=== PATIENT | male | born 1940 | race Caucasian/White ===

== ENCOUNTER 2016-10-11 10:45 | Inpatient (IN) | payer MEDICARE, BC ==
[~2016-10-11] VITALS: Ht 180.3 cm; Wt 74.2 kg
[~2016-10-11 10:45] MED LIST: ACTOS45 MG; ADULT ASPIRIN E81 MG PO; ALEVE220 M2 PO; BENICAR HCT1 TA1; CALCI23 PO; CIPROFLOXACN250 MG PO; CO Q-10100 MG PO; CO Q-10200 M1 PO; CODEINE SULF; COUMADIN5 MG PO; CYANOCOBALAM1000 MCG IM; DILAUDID 2MG2 MG/TA1 PO; DILAUDID2 MG PO; EC ASPIRIN325 M1 PO; FISH OIL1000 M1 PO; FLEXERIL OR; FLOMAX0.4 M1 PO; FLUARIX QUADRIV1 IN1 IM; FLUARIX QUADRIV1 INJ IM; GLYBURIDE2.5 MG PO; KURIC21 EX; LIPITOR40 M1 PO; LISINOP/HCTZ1 TAB PO; LISINOPRIL10 MG PO; MEDDOSEPAK PO; MEGACE20 MG/TAB PO; METFORMIN500 MG PO; METOPROL TAR50 MG PO; NAPROXEN250 MG PO; PREVNAR 13 IM; SEROQUEL25 MG PO; SIMVASTATIN40 MG PO; STOOL SOFTE1 PO; STOOL SOFTEN100 MG PO; STOOL SOFTENER100 MG PO; TEMAZEPAM15 MG PO; TRAMADOL HCL50 MG PO; ULTRAM50 M1 OR; ULTRAM50 M1 PO; ULTRAM50 MG PO; VESICARE5 MG PO; VITAMIN B 6100 MG PO; [UNRECOGNIZED DRUG - OTHER] TOP
[2016-10-16] VITALS (10 sets, daily range): BP systolic 115–148; BP diastolic 51–60
[2016-10-17] VITALS (18 sets, daily range): BP systolic 121–202; BP diastolic 54–87
[2016-10-17 04:39] LABS: HEMATOCRIT 34.6 % (39.0-50.0); HEMOGLOBIN 11.9 g/dl (14.0-18.0); IMMATURE GRANULOCYTES 0.2 % (0.0-1.0); MEAN CELL VOLUME 98.6 fL CALC (80.0-100.0); MEAN CORPUSCULAR HGB 33.9 pG CALC (26.0-32.0); MEAN CORPUSCULAR HGB CONC 34.4 g/L CALC (32.0-36.0); NEUT# 6.97 thou/uL (1.82-7.42); RED BLOOD COUNT 3.51 mill/uL (4.70-6.10); RED CELL DISTRI WIDTH 12.8 % (11.5-15.5)
[2016-10-17 04:54] LABS: ALBUMIN 3.1 g/dL (3.2-5.0); ALKALINE PHOSPHATASE 72 u/l (38-126); ANION GAP 11 (6-22 (CALC)); BILIRUBIN, TOTAL 2.1 mg/dL (0.0-1.4); BUN 12 mg/dL (8-23); BUN/CREATININE RATIO 13 (12-20 (CALC)); CALCIUM 8.7 mg/dL (8.4-10.2); CARBON DIOXIDE 24 mmol/l (22-30); CHLORIDE 107 mmol/l (95-108); CREATININE 0.9 mg/dL (0.7-1.3); GFR > 60 ML/MIN (>=60 (CALC)); GFR FOR AFR.AMER. > 60 ML/MIN (>=60 (CALC)); GLUCOSE 153 mg/dL (82-115); POTASSIUM 3.9 mmol/l (3.5-5.1); SGOT/AST 29 u/l (19-48); SGPT/ALT 31 u/l (11-66); SODIUM 138 mmol/l (137-146); TOTAL PROTEIN 5.3 g/dL (6.3-8.2)
[2016-10-17 16:28] LABS: URINE BILIRUBIN - DIPSTICK NEGATIVE (NEGATIVE); URINE BLOOD DIPSTICK MODERATE (NEGATIVE); URINE CLARITY CLEAR; URINE COLOR YELLOW; URINE GLUCOSE - DIPSTICK 100 mg/dL (NEGATIVE); URINE KETONE NEGATIVE (NEGATIVE); URINE LEUK ESTERASE NEGATIVE (Negative); URINE NITRITE - DIPSTICK NEGATIVE (Negative); URINE PH 6.5 (4.5-8.0); URINE PROTEIN - DIPSTICK NEGATIVE (NEG-TRACE); URINE SPECIFIC GRAVITY 1.015; URINE UROBILINOGEN - DIPSTICK 0.2 E.U./dL (0.2)
[2016-10-17 17:03] LABS: URINE RBC 0-2 RBC/hpf (0-5); URINE WBC 0-2 WBC/hpf (0-5)
[2016-10-18 04:58] VITALS: BP 163/73
[2016-10-18 08:59] VITALS: BP 137/53
[2016-10-18 09:35] LABS: HEMATOCRIT 40.7 % (39.0-50.0); HEMOGLOBIN 13.9 g/dl (14.0-18.0); IMMATURE GRANULOCYTES 0.4 % (0.0-1.0); MEAN CELL VOLUME 99.5 fL CALC (80.0-100.0); MEAN CORPUSCULAR HGB CONC 34.2 g/L CALC (32.0-36.0); NEUT# 6.61 thou/uL (1.82-7.42); RED BLOOD COUNT 4.09 mill/uL (4.70-6.10); RED CELL DISTRI WIDTH 12.6 % (11.5-15.5)
[2016-10-18 09:50] LABS: ANION GAP 16 (6-22 (CALC)); BUN 12 mg/dL (8-23); BUN/CREATININE RATIO 15 (12-20 (CALC)); CALCIUM 9.4 mg/dL (8.4-10.2); CARBON DIOXIDE 23 mmol/l (22-30); CHLORIDE 104 mmol/l (95-108); CREATININE 0.8 mg/dL (0.7-1.3); GFR > 60 ML/MIN (>=60 (CALC)); GFR FOR AFR.AMER. > 60 ML/MIN (>=60 (CALC)); GLUCOSE 196 mg/dL (82-115); SODIUM 138 mmol/l (137-146)
[2016-10-18 11:06] VITALS: BP 145/64
[2016-10-18 11:25] VITALS: BP 137/53
[2016-10-18 12:32] LABS: URINE BILIRUBIN - DIPSTICK NEGATIVE (NEGATIVE); URINE BLOOD DIPSTICK LARGE (NEGATIVE); URINE CLARITY CLEAR; URINE COLOR YELLOW; URINE GLUCOSE - DIPSTICK 100 mg/dL (NEGATIVE); URINE KETONE 15 mg/dL (NEGATIVE); URINE LEUK ESTERASE NEGATIVE (Negative); URINE NITRITE - DIPSTICK NEGATIVE (Negative); URINE PROTEIN - DIPSTICK 30 mg/dL (NEG-TRACE); URINE SPECIFIC GRAVITY 1.025
[2016-10-18 12:40] LABS: URINE MUCUS MODERATE hpf (NONE-FEW); URINE RBC TNTC RBC/hpf (0-5); URINE SQUAMOUS EPITHELIAL CELL FEW EPI/hpf (0-FEW)
== END 2016-10-18 14:13 | disposition home health service (06) | DRG 39 ==
LOC: ICU 10-16 08:54 → MS2 10-16 12:00
PROVIDERS: ADMIT Internal Medicine Geriatric Medicine; ATTEND Internal Medicine Geriatric Medicine
PROC: 03CK0ZZ Extirpation of Matter from Right Internal Carotid Artery, Open Approach (ICD-10-PCS; principal; 2016-10-16)
PROC: 03CM0ZZ Extirpation of Matter from Right External Carotid Artery, Open Approach (ICD-10-PCS; 2016-10-16)
PROC: 03UK0KZ Supplement Right Internal Carotid Artery with Nonautologous Tissue Substitute, Open Approach (ICD-10-PCS; 2016-10-16)
PROC: 03UH0KZ Supplement Right Common Carotid Artery with Nonautologous Tissue Substitute, Open Approach (ICD-10-PCS; 2016-10-16)
PROC: 0T9B70Z Drainage of Bladder with Drainage Device, Via Natural or Artificial Opening (ICD-10-PCS; 2016-10-17)
DX: I65.23 Occlusion and stenosis of bilateral carotid arteries (principal); J44.9 Chronic obstructive pulmonary disease, unspecified; E11.9 Type 2 diabetes mellitus without complications; I25.10 Atherosclerotic heart disease of native coronary artery without angina pectoris; I10 Essential (primary) hypertension; E78.5 Hyperlipidemia, unspecified; M19.90 Unspecified osteoarthritis, unspecified site; N40.1 Benign prostatic hyperplasia with lower urinary tract symptoms; R35.1 Nocturia; R39.12 Poor urinary stream; R39.13 Splitting of urinary stream; R33.8 Other retention of urine; Z86.718 Personal history of other venous thrombosis and embolism
CPT/HCPCS: J2710

== ENCOUNTER 2016-10-21 12:45 | Emergency (ER) | payer MEDICARE, BC ==
[~2016-10-21] VITALS: Ht 180.3 cm; Wt 80.0 kg
[2016-10-21 13:21] LABS: URINE BILIRUBIN - DIPSTICK NEGATIVE (NEGATIVE); URINE BLOOD DIPSTICK LARGE (NEGATIVE); URINE COLOR YELLOW; URINE GLUCOSE - DIPSTICK NEGATIVE (NEGATIVE); URINE KETONE 15 mg/dL (NEGATIVE); URINE LEUK ESTERASE TRACE (NEGATIVE); URINE NITRITE - DIPSTICK NEGATIVE (Negative); URINE PROTEIN - DIPSTICK TRACE mg/dL (NEG-TRACE); URINE UROBILINOGEN - DIPSTICK 0.2 E.U./dL (0.2)
[2016-10-21 13:39] LABS: URINE CLARITY TURBID
[2016-10-21 13:40] LABS: URINE BACTERIA RARE hpf; URINE RBC TNTC RBC/hpf (0-5); URINE SQUAMOUS EPITHELIAL CELL FEW EPI/hpf (0-FEW)
[2016-10-21] MEDS ORDERED: CIPROFLOXACN500 MG PO (13:48)
[2016-10-21] MEDS ORDERED: ALFUZOSIN HCL E10 MG PO (13:57)
[2016-10-21] MEDS ORDERED: LISINOPRIL10 M1 PO (13:58)
[2016-10-21] MEDS ORDERED: ATORVASTATIN CA40 MG PO (13:58)
[2016-10-21] MEDS ORDERED: METFORMIN500 M2 PO (13:59)
[2016-10-21] MEDS ORDERED: NEURONTIN300 MG PO (14:00)
[2016-10-21] MEDS ORDERED: ADLT ASA LOW81 MG PO (14:01)
[2016-10-21] MEDS ORDERED: COLACE100 MG PO (14:01)
[2016-10-21 14:15] VITALS: BP 112/74
[2016-10-22] MEDS ORDERED: ULTRAM50 M1 PO (12:38)
== END 2016-10-21 14:15 | disposition home or self-care (01) ==
LOC: ED 12:45
PROVIDERS: Emergency Medicine
DX: N39.0 Urinary tract infection, site not specified (principal); N40.0 Benign prostatic hyperplasia without lower urinary tract symptoms; I25.10 Atherosclerotic heart disease of native coronary artery without angina pectoris; I11.0 Hypertensive heart disease with heart failure; I50.9 Heart failure, unspecified; E11.40 Type 2 diabetes mellitus with diabetic neuropathy, unspecified; G89.29 Other chronic pain; M54.9 Dorsalgia, unspecified; E78.00 Pure hypercholesterolemia, unspecified; N48.89 Other specified disorders of penis; Z86.718 Personal history of other venous thrombosis and embolism

== ENCOUNTER 2016-10-22 09:59 | Emergency (ER) | payer MEDICARE, BC ==
[~2016-10-22] VITALS: Ht 180.3 cm; Wt 70.0 kg
[~2016-10-22 09:59] MED LIST changes: +ADLT ASA LOW81 MG PO; +ALFUZOSIN HCL E10 MG PO; +ATORVASTATIN CA40 MG PO; +CIPROFLOXACN500 MG PO; +COLACE100 MG PO; +LISINOPRIL10 M1 PO; +METFORMIN500 M2 PO; +NEURONTIN300 MG PO
[2016-10-22 12:30] VITALS: BP 122/68
[2016-10-22] MEDS ORDERED: ULTRAM50 M1 PO (12:38)
== END 2016-10-22 12:40 | disposition home or self-care (01) ==
LOC: ED 09:59
PROC: 0T9B70Z Drainage of Bladder with Drainage Device, Via Natural or Artificial Opening (ICD-10-PCS; principal; 2016-10-22)
DX: R33.9 Retention of urine, unspecified (principal); I25.10 Atherosclerotic heart disease of native coronary artery without angina pectoris; I11.0 Hypertensive heart disease with heart failure; I50.9 Heart failure, unspecified; E78.00 Pure hypercholesterolemia, unspecified; E11.40 Type 2 diabetes mellitus with diabetic neuropathy, unspecified; N40.0 Benign prostatic hyperplasia without lower urinary tract symptoms; G89.29 Other chronic pain; M54.9 Dorsalgia, unspecified; Z98.890 Other specified postprocedural states

== ENCOUNTER 2017-05-31 11:31 | Day surgery (SDC) | payer MEDICARE, BC ==
[~2017-05-31] VITALS: Ht 180.3 cm; Wt 64.4 kg
[~2017-05-31 11:31] MED LIST changes: +FINASTERIDE5 MG PO; +FUROSEMIDE40 MG PO; +POT CHLORIDE10 ME5 PO
[2017-05-31 14:16] VITALS: BP 138/60
== END 2017-05-31 14:35 | disposition home or self-care (01) ==
LOC: ENDO 11:31 → ORM 15:15 → ENDO 15:15
PROVIDERS: ATTEND Internal Medicine Gastroenterology
PROC: 0D758ZZ Dilation of Esophagus, Via Natural or Artificial Opening Endoscopic (ICD-10-PCS; principal; 2017-05-31)
PROC: 0DB48ZX Excision of Esophagogastric Junction, Via Natural or Artificial Opening Endoscopic, Diagnostic (ICD-10-PCS; 2017-05-31)
PROC: 0DBK8ZX Excision of Ascending Colon, Via Natural or Artificial Opening Endoscopic, Diagnostic (ICD-10-PCS; 2017-05-31)
PROC: 3E0H8GC Introduction of Other Therapeutic Substance into Lower GI, Via Natural or Artificial Opening Endoscopic (ICD-10-PCS; 2017-05-31)
DX: R63.4 Abnormal weight loss (principal); K22.2 Esophageal obstruction; D12.2 Benign neoplasm of ascending colon; K59.00 Constipation, unspecified; K29.50 Unspecified chronic gastritis without bleeding; K44.9 Diaphragmatic hernia without obstruction or gangrene; K64.4 Residual hemorrhoidal skin tags; K64.8 Other hemorrhoids; I10 Essential (primary) hypertension; E11.9 Type 2 diabetes mellitus without complications; I25.10 Atherosclerotic heart disease of native coronary artery without angina pectoris; E78.00 Pure hypercholesterolemia, unspecified; Z86.73 Personal history of transient ischemic attack (TIA), and cerebral infarction without residual deficits; Z86.010 Personal history of colon polyps

== ENCOUNTER 2017-07-31 17:43 | Emergency (ER) | payer MEDICARE, BC ==
[~2017-07-31] VITALS: Ht 180.3 cm; Wt 70.0 kg
[2017-07-31 18:11] VITALS: BP 121/62
== END 2017-07-31 18:23 | disposition home or self-care (01) ==
LOC: ED 17:43
DX: I97.630 Postprocedural hematoma of a circulatory system organ or structure following a cardiac catheterization (principal); I10 Essential (primary) hypertension; E11.9 Type 2 diabetes mellitus without complications; Y84.0 Cardiac catheterization as the cause of abnormal reaction of the patient, or of later complication, without mention of misadventure at the time of the procedure

== ENCOUNTER 2017-08-20 17:50 | Emergency (ER) | payer MEDICARE, BC ==
[~2017-08-20] VITALS: Ht 180.3 cm; Wt 65.0 kg
[2017-08-20] MEDS ORDERED: MAGNESIUM296 ML/BTL PO (18:29)
[2017-08-20] MEDS ORDERED: COLACE100 MG PO (18:29)
[2017-08-20 18:35] VITALS: BP 137/81
== END 2017-08-20 18:35 | disposition home or self-care (01) ==
LOC: ED 17:50
DX: K56.41 Fecal impaction (principal); E11.9 Type 2 diabetes mellitus without complications; I10 Essential (primary) hypertension; E78.00 Pure hypercholesterolemia, unspecified

== ENCOUNTER → 2018-04-25 | Outpatient (REF) | payer MEDICARE, BC ==
[~2018-04-25] MED LIST changes: +MAGNESIUM296 ML/BTL PO
[2018-04-25 10:37] LABS: HEMATOCRIT 38.6 % (39.0-50.0); HEMOGLOBIN 12.9 g/dl (14.0-18.0); IMMATURE GRANULOCYTES 0.2 % (0.0-5.0); MEAN CELL VOLUME 102.1 fL CALC (80.0-100.0); MEAN CORPUSCULAR HGB 34.1 pG CALC (26.0-32.0); MEAN CORPUSCULAR HGB CONC 33.4 g/L CALC (32.0-36.0); NEUT# 2.81 thou/uL (1.82-7.42); RED BLOOD COUNT 3.78 mill/uL (4.70-6.10); RED CELL DISTRI WIDTH 13.1 % (11.5-15.5)
[2018-04-25 10:50] LABS: ALBUMIN 3.8 g/dL (3.2-5.0); ALKALINE PHOSPHATASE 71 u/l (38-126); ANION GAP 12 (6-22 (CALC)); BILIRUBIN, TOTAL 1.3 mg/dL (0.0-1.4); BUN 17 mg/dL (8-23); BUN/CREATININE RATIO 17 (12-20 (CALC)); CALCULATED LDLCHOLESTEROL 102 mg/dL (62-129 (CALC)); CARBON DIOXIDE 30 mmol/l (22-30); CHLORIDE 102 mmol/l (95-108); CHOLESTEROL HDL RATIO 3.4 (<4.4 (CALC)); GFR > 60 ML/MIN (>=60 (CALC)); GFR FOR AFR.AMER. > 60 ML/MIN (>=60 (CALC)); HDL CHOLESTEROL 49 mg/dL (>=40); POTASSIUM 4.9 mmol/l (3.5-5.1); SGOT/AST 26 u/l (19-48); SODIUM 139 mmol/l (137-146); TOTAL CHOLESTEROL 171 mg/dl (0-199); TOTAL PROTEIN 6.1 g/dL (6.3-8.2); TOTAL TRIGLYCERIDES 95 mg/dl (30-149); VLDL CHOLESTROL 19 mg/dl (0-38 (CALC))
== END | disposition home or self-care (01) ==
LOC: LAB 09:23
PROVIDERS: ATTEND Nurse Practitioner Family
DX: E78.5 Hyperlipidemia, unspecified (principal); I10 Essential (primary) hypertension; E11.9 Type 2 diabetes mellitus without complications

== ENCOUNTER → 2018-04-30 | Outpatient (REF) | payer MEDICARE, BC | END | disposition home or self-care (01) | LOC: DI 12:08 | PROVIDERS: ATTEND Internal Medicine Geriatric Medicine | DX: M54.5 Low back pain (principal) ==

== ENCOUNTER 2018-12-10 17:29 | Emergency (ER) | payer MEDICARE, BC ==
[~2018-12-10] VITALS: Ht 180.3 cm; Wt 70.5 kg
[~2018-12-10 17:29] MED LIST changes: +BENADRYL 25MG C25 MG PO; +CYMBALTA30 MG PO; +NITROGLYCERIN0.4 MG PO; +TERAZOSIN5 MG PO; +ZANTAC 150 PO
[2018-12-10 18:20] LABS: HEMATOCRIT 34.2 % (39.0-50.0); HEMOGLOBIN 11.5 g/dl (14.0-18.0); IMMATURE GRANULOCYTES 0.4 % (0.0-5.0); MEAN CELL VOLUME 100.6 fL CALC (80.0-100.0); MEAN CORPUSCULAR HGB 33.8 pG CALC (26.0-32.0); MEAN CORPUSCULAR HGB CONC 33.6 g/L CALC (32.0-36.0); NEUT# 6.02 thou/uL (1.82-7.42); RED BLOOD COUNT 3.4 mill/uL (4.70-6.10); RED CELL DISTRI WIDTH 12.5 % (11.5-15.5)
[2018-12-10 18:44] LABS: ALBUMIN 3.4 g/dL (3.2-5.0); ALKALINE PHOSPHATASE 57 u/l (38-126); ANION GAP 12 (6-22 (CALC)); BILIRUBIN, TOTAL 0.9 mg/dL (0.0-1.4); BUN 30 mg/dL (8-23); BUN/CREATININE RATIO 27 (12-20 (CALC)); CARBON DIOXIDE 26 mmol/l (22-30); CHLORIDE 104 mmol/l (95-108); CREATININE 1.1 mg/dL (0.7-1.3); GFR > 60 ML/MIN (>=60 (CALC)); GFR FOR AFR.AMER. > 60 ML/MIN (>=60 (CALC)); POTASSIUM 4.6 mmol/l (3.5-5.1); SGOT/AST 27 u/l (19-48); SODIUM 137 mmol/l (137-146); TOTAL PROTEIN 5.9 g/dL (6.3-8.2)
[2018-12-10 21:51] LABS: URINE BILIRUBIN - DIPSTICK NEGATIVE (NEGATIVE); URINE BLOOD DIPSTICK NEGATIVE (NEGATIVE); URINE COLOR YELLOW; URINE GLUCOSE - DIPSTICK NEGATIVE (NEGATIVE); URINE KETONE NEGATIVE (NEGATIVE); URINE LEUK ESTERASE NEGATIVE (NEGATIVE); URINE NITRITE - DIPSTICK NEGATIVE (Negative); URINE PROTEIN - DIPSTICK TRACE mg/dL (NEG-TRACE); URINE UROBILINOGEN - DIPSTICK 0.2 E.U./dL (0.2)
[2018-12-10 22:10] VITALS: BP 118/64
[2018-12-10] MEDS ORDERED: FLEXERIL PO (22:12)
[2018-12-10] MEDS ORDERED: ULTRAM50 M1 PO (22:12)
== END 2018-12-10 22:20 | disposition home or self-care (01) ==
LOC: ED 17:29
PROVIDERS: Family Medicine
DX: S33.5XXA Sprain of ligaments of lumbar spine, initial encounter (principal); S50.311D Abrasion of right elbow, subsequent encounter; E11.9 Type 2 diabetes mellitus without complications; I10 Essential (primary) hypertension; W19.XXXD Unspecified fall, subsequent encounter; R42 Dizziness and giddiness

== ENCOUNTER 2020-09-10 14:59 | Emergency (ER) | payer MEDICARE, BC ==
[~2020-09-10] VITALS: Ht 180.3 cm; Wt 64.0 kg
[~2020-09-10 14:59] MED LIST changes: +FLEXERIL PO
[2020-09-10 15:00] VITALS: BP 176/77
== END 2020-09-10 18:38 | disposition home or self-care (01) ==
LOC: ED 14:59
DX: K59.00 Constipation, unspecified (principal); E11.9 Type 2 diabetes mellitus without complications; I10 Essential (primary) hypertension; E78.00 Pure hypercholesterolemia, unspecified; Z79.84 Long term (current) use of oral hypoglycemic drugs

== ENCOUNTER → 2020-10-28 | Outpatient (REF) | payer MEDICARE, BC ==
[2020-10-28 10:27] LABS: ANION GAP 11 (6-22 (CALC)); BUN 12 mg/dL (8-23); BUN/CREATININE RATIO 14 (12-20 (CALC)); CARBON DIOXIDE 27 mmol/l (22-30); CHLORIDE 104 mmol/l (95-108); CREATININE 0.9 mg/dL (0.7-1.3); GFR > 60 ML/MIN (>=60 (CALC)); GFR FOR AFR.AMER. > 60 ML/MIN (>=60 (CALC)); POTASSIUM 4.3 mmol/l (3.5-5.1); SODIUM 138 mmol/l (137-146)
== END | disposition home or self-care (01) ==
LOC: CT 09:51
PROVIDERS: ATTEND Urology
DX: R31.0 Gross hematuria (principal)
CPT/HCPCS: Q9967

== ENCOUNTER 2021-11-25 19:22 | Emergency (ER) | payer MEDICARE, BC ==
[~2021-11-25] VITALS: Ht 180.3 cm; Wt 65.0 kg
[2021-11-25] VITALS (16 sets, daily range): BP systolic 125–174; BP diastolic 50–104
[~2021-11-25 19:22] MED LIST changes: +TYLENOL325 M2
[2021-11-25 20:21] LABS: HEMATOCRIT 31.7 % (39.0-50.0); HEMOGLOBIN 10.8 g/dl (14.0-18.0); IMMATURE GRANULOCYTES 0.2 % (0.0-5.0); MEAN CELL VOLUME 99.1 fL CALC (80.0-100.0); MEAN CORPUSCULAR HGB 33.8 pG CALC (26.0-32.0); MEAN CORPUSCULAR HGB CONC 34.1 g/dL CAL (32.0-36.0); NEUT# 2.91 thou/uL (1.82-7.42); RED BLOOD COUNT 3.2 mill/uL (4.70-6.10); RED CELL DISTRI WIDTH 13.2 % (11.5-15.5)
[2021-11-25 20:31] LABS: ALBUMIN 3.6 g/dL (3.2-5.0); POTASSIUM 4.2 mmol/l (3.5-5.1); TOTAL PROTEIN 6.3 g/dL (6.3-8.2)
[2021-11-25 20:32] LABS: BILIRUBIN, TOTAL 1.6 mg/dL (0.0-1.4); CREATININE 2.1 mg/dL (0.7-1.3)
[2021-11-25 21:56] LABS: URINE BLOOD DIPSTICK TRACE-INTACT (NEGATIVE); URINE COLOR YELLOW; URINE GLUCOSE - DIPSTICK NEGATIVE (NEGATIVE); URINE KETONE TRACE mg/dL (NEGATIVE); URINE LEUK ESTERASE NEGATIVE (NEGATIVE); URINE PH 5.5 (4.5-8.0); URINE PROTEIN - DIPSTICK NEGATIVE (NEG-TRACE); URINE SPECIFIC GRAVITY 1.025; URINE UROBILINOGEN - DIPSTICK 0.2 E.U./dL (0.2)
[2021-11-25 21:58] LABS: URINE NITRITE - DIPSTICK NEGATIVE (Negative)
[2021-11-25 21:59] LABS: URINE BILIRUBIN - DIPSTICK SMALL (NEGATIVE)
[2021-11-26] MEDS ORDERED: ULTRAM50 M1 PO (00:10)
[2021-11-26 00:31] VITALS: BP 177/69
== END 2021-11-26 00:30 | disposition home or self-care (01) ==
LOC: ED 19:22
PROVIDERS: Emergency Medicine
DX: R51.9 Headache, unspecified (principal); E86.0 Dehydration; N28.9 Disorder of kidney and ureter, unspecified; I10 Essential (primary) hypertension; E11.9 Type 2 diabetes mellitus without complications; Z79.84 Long term (current) use of oral hypoglycemic drugs; Z20.822 Contact with and (suspected) exposure to COVID-19

== ENCOUNTER 2022-03-12 09:12 | Observation (INO) | payer MEDICARE, BC ==
[2022-03-12] VITALS (9 sets, daily range): BP systolic 116–152; BP diastolic 47–96
[~2022-03-12] VITALS: Ht 180.3 cm; Wt 63.0 kg
--- NOTE | 2022-03-12 09:15 | NUR ---
PATIENT BROUGHT INTO ROOM VIA WHEELCHAIR AND IN NAD. PROVIDER NOTIFIED OF PATIENT STATUS.
--- NOTE | 2022-03-12 10:01 | NUR ---
TRANSITION OF CARE REPORT TO AYE NURSE.
[2022-03-12 10:02] LABS: HEMATOCRIT 33.6 % (39.0-50.0); HEMOGLOBIN 11.6 g/dl (14.0-18.0); IMMATURE GRANULOCYTES 0.2 % (0.0-5.0); LYMPH% 4.8 % (15-41); MEAN CELL VOLUME 103.7 fL CALC (80.0-100.0); MEAN CORPUSCULAR HGB 35.8 pG CALC (26.0-32.0); MEAN CORPUSCULAR HGB CONC 34.5 g/dL CAL (32.0-36.0); NEUT# 10.83 thou/uL (1.82-7.42); RED BLOOD COUNT 3.24 mill/uL (4.70-6.10); RED CELL DISTRI WIDTH 13.3 % (11.5-15.5)
[2022-03-12 10:26] LABS: ALBUMIN 3.7 g/dL (3.2-5.0); ALKALINE PHOSPHATASE 51 u/l (38-126); ANION GAP 12 (6-22 (CALC)); BUN 27 mg/dL (8-23); BUN/CREATININE RATIO 18 (12-20 (CALC)); CARBON DIOXIDE 24 mmol/l (22-30); CHLORIDE 102 mmol/l (95-108); CREATININE 1.5 mg/dL (0.7-1.3); GFR FOR AFR.AMER. 54 ML/MIN (>=60 (CALC)); GFR OTHER RACES 45 ML/MIN (>=60 (CALC)); POTASSIUM 4.3 mmol/l (3.5-5.1); SGOT/AST 26 u/l (19-48); SODIUM 135 mmol/l (137-146); TOTAL PROTEIN 6.5 g/dL (6.3-8.2)
[2022-03-12 10:32] LABS: BILIRUBIN, TOTAL 2.7 mg/dL (0.0-1.4)
--- NOTE | 2022-03-12 10:50 | NUR ---
Reassessment of patient completed. No distress noted. given ASA.
--- NOTE | 2022-03-12 12:00 | NUR ---
Reassessment of patient completed. No distress noted.
--- NOTE | 2022-03-12 13:07 | NUR ---
Reassessment of patient completed. No distress noted.
--- NOTE | 2022-03-12 14:00 | NUR ---
Admission Note Report Given to: Abi RN Transported by: x Wheelchair Stretcher Transported with: x Nurse Transporter x Patent IV O2 x Launching Pad Mechanic Location: ICU x MS2 admitted to room 281.
--- NOTE | 2022-03-12 16:36 | NUR ---
PT ARRIVED ON UTIT @ 1350 TRANSPORTED VIA W/C BY ED STAFF. ALERT AND ORIENTED X 3, REPORTED HE HAD LEFT CHEST PAIN FROM BASE OF RIB TO SHOULDER JOINT BUT THAT HAS MOSTLY RESOLVED AND NOW HE FEELS SLIGHT DISCOMFORT TO THROAT WHENEVER HE SWALOWS AND HE DESCRIBED HIS PAIN @ 03/06. TELE MONITOR IN PLACE, IVF INFUSING, CALL NOGUEIRA IN REACH AND BED LOCKED IN LOWEST POSITION.
--- NOTE | 2022-03-12 20:00 | NUR ---
SEEN PATIENT .NO COMPALIN. NO S/S OF DISTRESS NOTED. RESTING COMFORTABLY AT THIS TIME.
[2022-03-13 00:46] VITALS: BP 110/48
--- NOTE | 2022-03-13 05:58 | NUR ---
PATIENT NO COMPLAINT ALL LIGHT. ASSISTED TO ABDELRAHMAN.
[2022-03-13 06:46] VITALS: BP 146/55
--- NOTE | 2022-03-13 07:18 | NUR ---
PT RESTING IN SEMI FOWLERS POSITION. A/OX3 ASSSESSMENT AND VS COMPLETED. HEART RHYTHM ON TELE. IV SITE NOTED NS INFUSING. RESPIRATIONS ON ROOM AIR. PT DENIES ADDITIONAL NEEDS AT THE TIME. PT EDUCATED USE OF CALL LIGHT PT STATED UNDERSTANDING ALL SAFETY PRECAUTIONS IN PLACE WITH CALL LIGHT IN REACH.
[2022-03-13 08:00] LABS: HEMATOCRIT 29.6 % (39.0-50.0); HEMOGLOBIN 10.3 g/dl (14.0-18.0); MEAN CELL VOLUME 102.4 fL CALC (80.0-100.0); MEAN CORPUSCULAR HGB 35.6 pG CALC (26.0-32.0); MEAN CORPUSCULAR HGB CONC 34.8 g/dL CAL (32.0-36.0); RED BLOOD COUNT 2.89 mill/uL (4.70-6.10); RED CELL DISTRI WIDTH 13.2 % (11.5-15.5)
[2022-03-13 08:15] LABS: ANION GAP 6 (6-22 (CALC)); BUN 26 mg/dL (8-23); BUN/CREATININE RATIO 27 (12-20 (CALC)); CARBON DIOXIDE 25 mmol/l (22-30); CHLORIDE 107 mmol/l (95-108); GFR FOR AFR.AMER. > 60 ML/MIN (>=60 (CALC)); GFR OTHER RACES > 60 ML/MIN (>=60 (CALC)); POTASSIUM 4.3 mmol/l (3.5-5.1); SODIUM 134 mmol/l (137-146)
[2022-03-13 10:51] VITALS: BP 136/52
--- NOTE | 2022-03-13 12:57 | NUR ---
PT RESTING IN HIGH FOWLERS POSITION. PT DENIES ADDITTIONAL NEEDSA T THE TIME ALL SAFETY PRECAUTIONS IN PLACE.
[2022-03-13 15:37] VITALS: BP 151/59
--- NOTE | 2022-03-13 16:59 | NUR ---
PT RESTING IN HIGH FOWLERS CURRENTLY IN RESTROOM FOR BM
[2022-03-13 18:49] VITALS: BP 146/58
[2022-03-14 00:26] VITALS: BP 141/56
[2022-03-14 03:36] VITALS: BP 145/50
--- NOTE | 2022-03-14 03:47 | NUR ---
PATIENT AWAKE USING HIS INCENTIVE SPIROMETER.
[2022-03-14 05:52] LABS: BASO% 0.1 % (0-3); EOS% 0.6 % (0-8); HEMATOCRIT 27.1 % (39.0-50.0); HEMOGLOBIN 9.5 g/dl (14.0-18.0); IMMATURE GRANULOCYTES 0.2 % (0.0-5.0); LYMPH% 8.5 % (15-41); MEAN CELL VOLUME 101.9 fL CALC (80.0-100.0); MEAN CORPUSCULAR HGB 35.7 pG CALC (26.0-32.0); MEAN CORPUSCULAR HGB CONC 35.1 g/dL CAL (32.0-36.0); MONO% 5.2 % (2-13); NEUT# 7.55 thou/uL (1.82-7.42); NEUT% 85.4 % (42-76); RED BLOOD COUNT 2.66 mill/uL (4.70-6.10); RED CELL DISTRI WIDTH 13.3 % (11.5-15.5)
[2022-03-14 06:12] LABS: ALKALINE PHOSPHATASE 51 u/l (38-126); BUN 24 mg/dL (8-23); BUN/CREATININE RATIO 31 (12-20 (CALC)); CARBON DIOXIDE 23 mmol/l (22-30); CHLORIDE 109 mmol/l (95-108); CREATININE 0.8 mg/dL (0.7-1.3); GFR FOR AFR.AMER. > 60 ML/MIN (>=60 (CALC)); GFR OTHER RACES > 60 ML/MIN (>=60 (CALC)); SGOT/AST 26 u/l (19-48); SODIUM 135 mmol/l (137-146)
[2022-03-14 06:19] LABS: ANION GAP 6 (6-22 (CALC)); POTASSIUM 3.4 mmol/l (3.5-5.1)
[2022-03-14 06:20] LABS: ALBUMIN 2.5 g/dL (3.2-5.0); BILIRUBIN, TOTAL 1.2 mg/dL (0.0-1.4); TOTAL PROTEIN 4.9 g/dL (6.3-8.2)
[2022-03-14 07:02] VITALS: BP 143/55
--- NOTE | 2022-03-14 07:44 | NUR ---
BEDSIDE SHIFT REPORT, PT SLEEPING, BREATHING EVEN AND NON-LABORED, IVF INFUSING, TELE MONITOR IN PLACE, CALL NOGUEIRA IN REACH AND BED LOCKED IN LOWEST POSITION WITH ALARM ACTIVATED.
--- NOTE | 2022-03-14 10:41 | NUR ---
ALERT AND ORIENTED SITTING UP IN RECLINER AT THIS TIME, NO C/O DISCOMFORT, CALL NOGUEIRA IN REACH.
[2022-03-14 10:42] VITALS: BP 147/57
[2022-03-14] MEDS ORDERED: OMNICEF300 MG PO (13:17)
[2022-03-14] MEDS ORDERED: ZITHROMAX250 MG PO (13:17)
--- NOTE | 2022-03-14 16:09 | NUR ---
Discharge instructions given. Patient verbalizes understanding of same. Discharged in fair condition via Wheelchair to Home with *Other. All belongings sent with pt.
== END 2022-03-14 16:08 | disposition home health service (06) ==
LOC: ED 09:12 → ED-I 10:47 → ED 11:19 → MS2 11:20
PROVIDERS: Family Medicine; Nurse Practitioner Family; ADMIT Internal Medicine; ATTEND Internal Medicine
DX: J18.9 Pneumonia, unspecified organism (principal); I10 Essential (primary) hypertension; E11.9 Type 2 diabetes mellitus without complications; E78.5 Hyperlipidemia, unspecified; Z79.84 Long term (current) use of oral hypoglycemic drugs; Z20.822 Contact with and (suspected) exposure to COVID-19
CPT/HCPCS: J1650

== ENCOUNTER 2022-06-26 05:17 | Inpatient (IN) | payer MEDICARE, BC ==
[2022-06-26] VITALS (56 sets, daily range): BP systolic 78–175; BP diastolic 33–90
[~2022-06-26] VITALS: Ht 180.3 cm; Wt 54.0 kg
[~2022-06-26 05:17] MED LIST changes: -LISINOPRIL10 M1 PO; +LISINOPRIL5 MG PO; +OMNICEF300 MG PO; +ZITHROMAX250 MG PO
[2022-06-26] MEDS ORDERED: PROSCAR5 MG PO (06:01)
[2022-06-26] MEDS ORDERED: TAMSULOSIN0.4 MG PO (06:01)
[2022-06-26 06:20] LABS: BASO% 0.3 % (0-3); EOS% 6.4 % (0-8); IMMATURE GRANULOCYTES 0.5 % (0.0-5.0); LYMPH% 17.3 % (15-41); MEAN CELL VOLUME 101.7 fL CALC (80.0-100.0); MEAN CORPUSCULAR HGB 33.3 pG CALC (26.0-32.0); MEAN CORPUSCULAR HGB CONC 32.8 g/dL CAL (32.0-36.0); MONO% 7.9 % (2-13); NEUT# 4.25 thou/uL (1.82-7.42); NEUT% 67.6 % (42-76); RED BLOOD COUNT 3.57 mill/uL (4.70-6.10); RED CELL DISTRI WIDTH 13.1 % (11.5-15.5)
[2022-06-26 06:22] LABS: HEMATOCRIT 36.3 % (39.0-50.0); HEMOGLOBIN 11.9 g/dl (14.0-18.0)
[2022-06-26 06:31] LABS: BILIRUBIN, TOTAL 1.3 mg/dL (0.2-1.3); BUN 20 mg/dL (8-23); BUN/CREATININE RATIO 17 (12-20 (CALC)); CHLORIDE 101 mmol/l (95-108); CREATININE 1.2 mg/dL (0.7-1.3); GFR FOR AFR.AMER. > 60 ML/MIN (>=60 (CALC)); GFR OTHER RACES 58 ML/MIN (>=60 (CALC)); LIPASE 111 u/l (23-300); POTASSIUM 3.7 mmol/l (3.5-5.1); SGOT/AST 28 u/l (19-48); SODIUM 136 mmol/l (137-146)
[2022-06-26 06:41] LABS: ALBUMIN 3.7 g/dL (3.2-5.0); ALKALINE PHOSPHATASE 77 u/l (38-126); ANION GAP 11 (6-22 (CALC)); CARBON DIOXIDE 28 mmol/l (22-30); TOTAL PROTEIN 6.4 g/dL (6.3-8.2)
[2022-06-26 15:56] LABS: URINE BLOOD DIPSTICK MODERATE (NEGATIVE); URINE COLOR YELLOW; URINE GLUCOSE - DIPSTICK NEGATIVE (NEGATIVE); URINE KETONE NEGATIVE (NEGATIVE); URINE LEUK ESTERASE NEGATIVE (NEGATIVE); URINE PH 6.5 (4.5-8.0); URINE PROTEIN - DIPSTICK NEGATIVE (NEG-TRACE); URINE SPECIFIC GRAVITY 1.015; URINE UROBILINOGEN - DIPSTICK 0.2 E.U./dL (0.2)
[2022-06-26 16:00] LABS: URINE NITRITE - DIPSTICK NEGATIVE (Negative)
[2022-06-26 16:01] LABS: URINE RBC 0-2 RBC/hpf (0-5); URINE WBC 0-2 WBC/hpf (0-5)
[2022-06-27] VITALS (19 sets, daily range): BP systolic 120–160; BP diastolic 44–106
[2022-06-27 05:45] LABS: HEMATOCRIT 32.2 % (39.0-50.0); HEMOGLOBIN 10.5 g/dl (14.0-18.0); MEAN CELL VOLUME 102.9 fL CALC (80.0-100.0); MEAN CORPUSCULAR HGB 33.5 pG CALC (26.0-32.0); MEAN CORPUSCULAR HGB CONC 32.6 g/dL CAL (32.0-36.0); RED BLOOD COUNT 3.13 mill/uL (4.70-6.10); RED CELL DISTRI WIDTH 12.8 % (11.5-15.5)
[2022-06-27 06:07] LABS: ALKALINE PHOSPHATASE 62 u/l (38-126); ANION GAP 8 (6-22 (CALC)); BILIRUBIN, TOTAL 1.2 mg/dL (0.2-1.3); BUN 14 mg/dL (8-23); BUN/CREATININE RATIO 16 (12-20 (CALC)); CARBON DIOXIDE 24 mmol/l (22-30); CHLORIDE 108 mmol/l (95-108); CREATININE 0.9 mg/dL (0.7-1.3); GFR FOR AFR.AMER. > 60 ML/MIN (>=60 (CALC)); GFR OTHER RACES > 60 ML/MIN (>=60 (CALC)); MAGNESIUM 1.5 mg/dL (1.6-2.3); POTASSIUM 4.3 mmol/l (3.5-5.1); SGOT/AST 21 u/l (19-48); SODIUM 136 mmol/l (137-146)
[2022-06-27 06:16] LABS: ALBUMIN 2.9 g/dL (3.2-5.0)
[2022-06-27 11:56] LABS: URINE BILIRUBIN - DIPSTICK NEGATIVE (NEGATIVE)
[2022-06-28 00:37] VITALS: BP 143/55
[2022-06-28 04:42] VITALS: BP 157/58
[2022-06-28 06:47] VITALS: BP 148/56
[2022-06-28 08:54] VITALS: BP 158/53
[2022-06-28 08:55] VITALS: BP 158/53
[2022-06-28] MEDS ORDERED: OMEPRAZOLE20 MG PO (11:04)
== END 2022-06-28 12:03 | disposition home or self-care (01) | DRG 390 ==
LOC: ED 05:17 → ED-I 08:25 → ED 08:39 → ICU 08:40 → MS2 06-27 09:54
PROVIDERS: Emergency Medicine; ADMIT Internal Medicine; ATTEND Internal Medicine
DX: K56.609 Unspecified intestinal obstruction, unspecified as to partial versus complete obstruction (principal); K56.41 Fecal impaction; E86.0 Dehydration; I10 Essential (primary) hypertension; E11.9 Type 2 diabetes mellitus without complications; N40.0 Benign prostatic hyperplasia without lower urinary tract symptoms; E78.5 Hyperlipidemia, unspecified; K44.9 Diaphragmatic hernia without obstruction or gangrene; M48.56XD Collapsed vertebra, not elsewhere classified, lumbar region, subsequent encounter for fracture with routine healing; Z79.84 Long term (current) use of oral hypoglycemic drugs
CPT/HCPCS: J1650; J3475; Q9967; S0164

== ENCOUNTER 2022-08-04 03:42 | Emergency (ER) | payer MEDICARE, BC ==
[~2022-08-04] VITALS: Ht 162.6 cm; Wt 54.0 kg
[~2022-08-04 03:42] MED LIST changes: +ASPIRINCHW 81MG PO; +NEURONTIN100 MG PO; +OMEPRAZOLE20 MG PO; +PROSCAR5 MG PO; +TAMSULOSIN0.4 MG PO
[2022-08-04 04:09] VITALS: BP 135/61
[2022-08-04] MEDS ORDERED: FAMCICLOVIR500 MG PO (04:34)
[2022-08-04 04:52] LABS: BASO% 0.6 % (0-3); HEMATOCRIT 32.6 % (39.0-50.0); HEMOGLOBIN 10.6 g/dl (14.0-18.0); IMMATURE GRANULOCYTES 0.2 % (0.0-5.0); MEAN CELL VOLUME 102.8 fL CALC (80.0-100.0); MEAN CORPUSCULAR HGB 33.4 pG CALC (26.0-32.0); MEAN CORPUSCULAR HGB CONC 32.5 g/dL CAL (32.0-36.0); MONO% 9.5 % (2-13); NEUT# 3.27 thou/uL (1.82-7.42); NEUT% 64.7 % (42-76); RED BLOOD COUNT 3.17 mill/uL (4.70-6.10); RED CELL DISTRI WIDTH 12.9 % (11.5-15.5)
[2022-08-04 05:07] LABS: ALKALINE PHOSPHATASE 70 u/l (38-126); BILIRUBIN, TOTAL 0.9 mg/dL (0.2-1.3); BUN 18 mg/dL (8-23); BUN/CREATININE RATIO 16 (12-20 (CALC)); CHLORIDE 104 mmol/l (95-108); CREATININE 1.1 mg/dL (0.7-1.3); GFR FOR AFR.AMER. > 60 ML/MIN (>=60 (CALC)); GFR OTHER RACES > 60 ML/MIN (>=60 (CALC)); POTASSIUM 4.4 mmol/l (3.5-5.1); SGOT/AST 32 u/l (19-48); SODIUM 136 mmol/l (137-146)
[2022-08-04 05:10] LABS: ALBUMIN 3.7 g/dL (3.2-5.0); ANION GAP 7 (6-22 (CALC)); CARBON DIOXIDE 29 mmol/l (22-30); TOTAL PROTEIN 6.2 g/dL (6.3-8.2)
== END 2022-08-04 05:30 | disposition home or self-care (01) ==
LOC: ED 03:42
PROVIDERS: Emergency Medicine
DX: B02.9 Zoster without complications (principal); I10 Essential (primary) hypertension; E11.9 Type 2 diabetes mellitus without complications; E78.00 Pure hypercholesterolemia, unspecified; Z79.84 Long term (current) use of oral hypoglycemic drugs

== ENCOUNTER 2022-09-02 23:28 | Emergency (ER) | payer MEDICARE, BC ==
[~2022-09-02] VITALS: Ht 162.6 cm; Wt 52.0 kg
[~2022-09-02 23:28] MED LIST changes: +FAMCICLOVIR500 MG PO
[2022-09-03] MEDS ORDERED: LORTAB 1010 MG PO (00:34)
== END 2022-09-03 01:15 | disposition home or self-care (01) ==
LOC: ED 23:28
DX: B02.9 Zoster without complications (principal); I10 Essential (primary) hypertension; E11.9 Type 2 diabetes mellitus without complications; E78.00 Pure hypercholesterolemia, unspecified; Z79.84 Long term (current) use of oral hypoglycemic drugs